=== PATIENT | female | born 1985 | race Native Hawaiian/Other Pacific Islander ===

== ENCOUNTER 2017-06-24 14:58 | Inpatient (IN) | payer MEDICAID, OTHER ==
[2017-06-24 15:06] VITALS: BMI 17.6
[2017-06-24] MEDS ORDERED: Sodium Chloride 0.9% 1,000 ML IV STA (15:19)
[2017-06-24] MEDS ORDERED: Naloxone 0.4 mg/ml Inj (Adult) IVP STA (15:21)
[2017-06-24 15:35] LABS: BASO # 0.01 K/mm3 (0.0-2.0); BASO % 0.2 % (0.0-3.0); EOS # 0.1 (0.0-0.7); EOS % 1.2 % (1.5-5.0); GRAN # 3.13 (1.4-6.5); GRAN % 61.6 % (50.0-68.0); HEMATOCRIT 36.5 % (36.0-48.0); LYMPH # 1.5 (1.2-3.4); LYMPH % 29.1 % (22.0-35.0); MEAN CELL VOLUME 80.9 fl (80.0-105.0); MEAN CORPUSCULAR HEMOGLOBIN 26.8 pg (25.0-35.0); MEAN CORPUSCULAR HGB CONC 33.2 g/dl (31.0-37.0); MEAN PLATELET VOLUME 10.8 fl (7.0-11.0); MONO # 0.4 (0.1-0.6); MONO % 7.9 % (1.0-6.0); RED CELL DISTRIBUTION WIDTH 14.4 % (11.5-14.5); WHITE BLOOD COUNT 5.1 10^3/ul (4.5-11.0)
--- NOTE | 2017-06-24 15:49 | ED PDOC ---
Arrival/HPI - General Chief Complaint: Altered Mental Status Time Seen by Provider: 06/24/17 15:07 Historian: Spouse - History of Present Illness Narrative History of Present Illness (Text): 06/24/17 15:46 32 yo F with no significant past medical or psychiatric history, brought in by her for evaluation of altered mental status. As per patient's , he had purchased the patient [id number] Motrin PM 45 minutes ago, due to her complaint of a headache today. He states 30 minutes prior to arrival he found her in deep sleep and was unable to wake her up. He adds that he found the bottle nearly empty, with only 2 tablets remaining in the entire bottle contains a total of 20 tablets. He states that she does not have a history of depression or prior suicide attempts in the past. Otherwise he states that she only complained of headache today and had no other complaints. PMD none Past Medical History - Provider Review Nursing Documentation Reviewed: Yes - Infectious Disease Hx of Infectious Diseases: None - Psychiatric Hx Substance Use: No (UNKNOWN) - Anesthesia Hx Anesthesia: (UNKNOWN) Family/Social History - Physician Review Nursing Documentation Reviewed: Yes Family/Social History: No Known Family HX Smoking Status: Unknown If Ever Smoked Hx Alcohol Use: No (UNKNOWN) Hx Substance Use: No (UNKNOWN) Allergies/Home Meds Allergies/Adverse Reactions: Allergies Unobtainable Allergy (Verified 06/24/17 15:06) Home Medications: Home Meds Medication Instructions Recorded Confirmed Unobtainable 06/24/17 06/24/17 Review of Systems - Review of Systems Systems not reviewed;Unavailable: Altered Mental Status Physical Exam Vital Signs Reviewed: Yes Vital Signs Temp Pulse Resp BP Pulse Ox 06/24/17 22:27 74 18 120/77 99 06/24/17 18:50 78 17 132/89 99 06/24/17 17:30 98 F 76 19 128/85 99 06/24/17 15:11 100 H 14 136/93 H 100 Blood Pressure: Normal Pulse: Tachycardic Respiratory Rate: Normal Appearance: Positive for: Well-Appearing, Other (Sleeping) Pain Distress: None Finger Stick Blood Glucose: 98 - Systems Exam Head: Present: Atraumatic, Normocephalic. No: Tenderness, Swelling Pupils: Present: PERRL Conjunctiva: Present: Normal Mouth: Present: Moist Mucous Membranes Neck: Present: Normal Range of Motion Respiratory/Chest: Present: Clear to Auscultation, Good Air Exchange. No: Respiratory Distress, Wheezes, Rhonchi Cardiovascular: Present: Normal S1, S2, Tachycardic. No: Murmurs Abdomen: No: Tenderness, Distention Back: Present: Normal Inspection Upper Extremity: Present: Normal Inspection, Neurovascularly Intact, Capillary Refill < 2s. No: Edema, Tenderness, Swelling, Deformity Lower Extremity: Present: Normal Inspection, NORMAL PULSES, Capillary Refill < 2 s. No: Edema, Tenderness, Swelling, Deformity Neurological: Present: Other (unable to test) Skin: Present: Warm, Dry, Normal Color. No: Rashes Medical Decision Making ED Course and Treatment: 06/24/17 15:53 32 yo F with no significant past medical or psychiatric history, brought in by her for possible overdose of [id number] Motrin PM 45 minutes ago. Plan: -- Labs -- IV fluids -- Urinalysis -- EKG -- CXR -- Drug screen / etoh level -- Asa / salicylate level -- Reassess and disposition -- CT head Case d/w Aubrey from poison control, agree with current plan and treatment, recommends supportive care for now, will call back to see the patient's status. 06/24/17 16:00 On reevaluation, patient is now awake, is somewhat alert, is answering a few questions at this time. Breathing is easy and unlabored. VS : P 86 BP 136/93 O2 sat 100%RA. EKG: NSR at 79 bpm bpm, (-) acute ST changes, as read by ADRIANA. Lab results reviewed, UA shows evidence of UTI, urine hCG is negative, otherwise the rest of the labs are within normal limits. Vital signs stable at this time. On reevaluation, patient is sleeping comfortably in bed in no acute distress, breathing is easy unlabored, patient is arousable at this time. Chest x-ray and CT still pending. CXR: NAD, as read by ADRIANA. CT Head : shows no acute findings. On re-evaluation, patient is now more awake and alert, still drowsy and unable to completely answer questions. Breathing is easy and unlabored. She is calm and cooperative at this time. VSS. Case d/w Dr. Thomas, agree with plan for inpatient admission to the hospitalist with psych consult. - Lab Interpretations Microbiology Results: Microbiology Results 06/24/17 15:40 Urine,Clean Catch Urine Culture - Preliminary Gram Negative Jose Lab Results: 06/24/17 15:00 06/24/17 15:00 Lab Results 06/24/17 15:40: Urine Opiates Screen Negative, Urine Methadone Screen Negative, Ur Barbiturates Screen Negative, Ur Phencyclidine Scrn Negative, Ur Amphetamines Screen Negative, U Benzodiazepines Scrn Negative, U Oth Cocaine Metabols Negative, U Cannabinoids Screen Negative 06/24/17 15:40: Urine Color Light yellow, Urine Appearance Clear, Urine pH 6.0, Ur Specific [place] 1.010, Urine Protein Negative, Urine Glucose (UA) Negative, Urine Ketones Negative, Urine Blood Small H, Urine Nitrate Positive H, Urine Bilirubin Negative, Urine Urobilinogen 0.2, Ur Leukocyte Esterase Trace H, Urine RBC 1 - 3, Urine WBC 0 - 2, Ur Epithelial Cells 0 - 2, Urine Bacteria Many 06/24/17 15:00: Beta HCG, Quant < 2.39 06/24/17 15:00: Alcohol, Quantitative < 10 06/24/17 15:00: Salicylates < 1 L, Acetaminophen < 10.0 L 06/24/17 15:00: Sodium 140, Potassium 3.7, Chloride 104, Carbon Dioxide 22, Anion Gap 18, BUN 12, Creatinine 0.6, Est GFR ( Amer) > 60, Est GFR (Non- Af Amer) > 60, Random Glucose 100, Calcium 9.2, Total Bilirubin 0.4, AST 30, ALT 21, Alkaline Phosphatase 80, Total Protein 8.4 H, Albumin 4.5, Globulin 3.9 , Albumin/Globulin Ratio 1.2 06/24/17 15:00: WBC 5.1, RBC 4.51, Hgb 12.1, Hct 36.5, MCV 80.9, MCH 26.8, MCHC 33.2, RDW 14.4, Plt Count 259, MPV 10.8, Gran % 61.6, Lymph % (Auto) 29.1, [place] % (Auto) 7.9 H, Eos % (Auto) 1.2 L, Baso % (Auto) 0.2, Gran # 3.13, Lymph # 1.5 , [place] # 0.4, Eos # 0.1, Baso # 0.01 I have reviewed the lab results: Yes - RAD Interpretation Narrative RAD Interpretations (Text): 06/24/17 19:42 CT head : FINDINGS: LIMITATIONS: Mild to moderate streak/motion artifact. BRAIN: No significant acute abnormality identified, allowing for motion artifact. No acute hemorrhage seen within the brain. No acute extra-axial fluid collections visualized. No evidence of significant mass effect within the brain. Normal oneil-white matter differentiation. VENTRICLES: No evidence of significant hydrocephalus. BONES/JOINTS: No acute fractures or other acute bony abnormality noted. SOFT TISSUES: No acute abnormality of the visualized soft tissues is seen. SINUSES: Small mucus retention cyst in a right ethmoid sinus. Remaining visualized paranasal sinuses appear clear. MASTOID AIR CELLS: Mastoid air cells appear clear. IMPRESSION: - No acute findings seen within the brain, allowing for motion artifact. - See above for remaining findings. Dictated and Authenticated by: Rowena Carter MD 06/24/2017 7:39 PM Eastern Time ([place] & [place]) Radiology Orders: 06/24/17 15:19 CHEST PORTABLE [RAD] Stat 06/24/17 15:21 HEAD W/O CONTRAST [CT] Stat - Medication Orders Current Medication Orders: Heparin Sodium (Porcine) (Heparin) 5,000 units SC Q8 [facility] PRN Reason: Protocol Last Admin: 06/25/17 05:24 Dose: 5,000 units Subcutaneous Administrations Document 06/25/17 05:24 CO (Rec: 06/25/17 05:24 CO [facility] [id number]) Charges for Administration # of Subcutaneous Administrations 1 Sodium Chloride (Sodium Chloride 0.9%) 1,000 mls @ 150 mls/hr IV .Q6H40M [facility] Last Admin: 06/25/17 06:54 Dose: 150 mls/hr eMAR Start Stop Document 06/25/17 06:54 CO (Rec: 06/25/17 06:54 CO [facility] [id number]) Intravenous Solution Start Date 06/25/17 Start Time 06:54 Nitrofurantoin Macrocrystals (Macrobid) 100 mg PO Q12 [facility] Last Admin: 06/25/17 09:53 Dose: Not Given Non-Admin Reason: NPO Pantoprazole Sodium (Protonix Ec Tab) 40 mg PO 0600 [facility] Discontinued Medications Heparin Sodium (Porcine) (Heparin) 5,000 units IVP Q8 [facility] PRN Reason: Protocol Last Admin: 06/24/17 23:55 Dose: Sodium Chloride (Sodium Chloride 0.9%) 1,000 mls @ 1,000 mls/hr IV .Q1H STA Stop: 06/24/17 16:18 Last Admin: 06/24/17 15:43 Dose: 1,000 mls/hr eMAR Start Stop Document 06/24/17 15:43 IT (Rec: 06/24/17 15:43 IT [id number]) Intravenous Solution Start Date 06/24/17 Start Time 15:43 End Date 06/24/17 End time 16:43 Total Infusion Time 60 Naloxone HCl (Narcan) 0.4 mg IVP STAT STA Stop: 06/24/17 15:22 Last Admin: 06/24/17 15:44 Dose: 0.4 mg IVP Administration Document 06/24/17 15:44 IT (Rec: 06/24/17 15:44 IT [id number]) Charges for Administration # of IVP Administrations 1 Nitrofurantoin Macrocrystals (Macrobid) 100 mg PO ONCE ONE Stop: 06/24/17 19:44 Last Admin: 06/24/17 23:17 Dose: 100 mg Pantoprazole Sodium (Protonix Inj) 40 mg IVP DAILY [facility] Last Admin: 06/25/17 10:00 Dose: 40 mg IVP Administration Document 06/25/17 10:00 GM (Rec: 06/25/17 10:00 GM [id number]) Charges for Administration # of IVP Administrations 1 - PA / [employer] / Resident Statement MD/DO has reviewed & agrees with the documentation as recorded. Disposition/Present on Arrival - Present on Arrival Any Indicators Present on Arrival: No History of DVT/PE: No History of Uncontrolled Diabetes: No Urinary Catheter: No History of Decub. Ulcer: No History Surgical Site Infection Following: None - Disposition Have Diagnosis and Disposition been Completed?: Yes Diagnosis: Motrin overdose, Diphenhydramine overdose Disposition: HOSPITALIZED Disposition Time: 20:09 Patient Plan: Admission Patient Problems: Current Active Problems Problem Status Onset Diphenhydramine overdose Acute Motrin overdose Acute Condition: STABLE
[2017-06-24 15:57] LABS: ALB/GLOB RATIO 1.2 (1.1-1.8); ALKALINE PHOSPHATASE 80 U/L (38-126); ALT/SGPT 21 U/L (7-56); AST/SGOT 30 U/L (14-36); BILIRUBIN,TOTAL 0.4 mg/dL (0.2-1.3); BLOOD UREA NITROGEN 12 mg/dL (7-21); CALCIUM 9.2 mg/dL (8.4-10.5); CARBON DIOXIDE 22 mmol/L (21-33); CHLORIDE 104 mmol/L (98-107); GFR AFRICAN-AMERICAN > 60; GLUCOSE,RANDOM 100 mg/dL (70-110); POTASSIUM 3.7 mmol/L (3.6-5.0); SODIUM 140 mmol/L (132-148); TOTAL PROTEIN 8.4 g/dL (5.8-8.3)
[2017-06-24 16:09] LABS: URINE BILIRUBIN NEGATIVE (NEGATIVE); URINE BLOOD SMALL (NEGATIVE); URINE GLUCOSE (UA) NEGATIVE (NEGATIVE); URINE KETONE NEGATIVE (NEGATIVE); URINE LEUKOCYTE ESTERASE TRACE Leu/uL (NEGATIVE); URINE PROTEIN NEGATIVE mg/dL (<30 mg/dL); URINE UROBILINOGEN 0.2 E.U./dL (<1 E.U./dL)
[2017-06-24 16:12] LABS: URINE APPEARANCE CLEAR (CLEAR); URINE COLOR LIGHT YELLOW (YELLOW)
[2017-06-24 16:40] LABS: URINE BACTERIA MANY (NEG); URINE EPITHELIAL CELLS 0 - 2 /hpf (0-5); URINE WBC 0 - 2 /hpf (0-6)
--- NOTE | 2017-06-24 19:39 | CT ---
EXAM: CT Head Without Intravenous Contrast EXAM DATE/TIME: 06/24/2017 3:21 PM CLINICAL HISTORY: 32 years old, female; Signs and symptoms; Altered mental status/memory loss; Patient HX: Overdose TECHNIQUE: Axial computed tomography images of the head/brain without intravenous contrast. All CT scans at this facility use one or more dose reduction techniques, viz.: automated exposure control; ma/kV adjustment per patient size (including targeted exams where dose is matched to indication; i.e. head); or iterative reconstruction technique. COMPARISON: No relevant prior studies available. FINDINGS: LIMITATIONS: Mild to moderate streak/motion artifact. BRAIN: No significant acute abnormality identified, allowing for motion artifact. No acute hemorrhage seen within the brain. No acute extra-axial fluid collections visualized. No evidence of significant mass effect within the brain. Normal oneil-white matter differentiation. VENTRICLES: No evidence of significant hydrocephalus. BONES/JOINTS: No acute fractures or other acute bony abnormality noted. SOFT TISSUES: No acute abnormality of the visualized soft tissues is seen. SINUSES: Small mucus retention cyst in a right ethmoid sinus. Remaining visualized paranasal sinuses appear clear. MASTOID AIR CELLS: Mastoid air cells appear clear. IMPRESSION: - No acute findings seen within the brain, allowing for motion artifact. - See above for remaining findings.
--- NOTE | 2017-06-24 22:54 | CP.PCM.HP ---
<ToniaIssac - Last Filed: 06/25/17 00:57> History of Present Illness - History of Present Illness History of Present Illness: 32 F w/ no PMHx presents with AMS. Patient's is at bedside helping with translation and history. Patient's states that while they were on a family drive from [place] back to [place], patient's took 18 Motrin PM because she was complaining of a headache. Patient's states that she has never tried to commit suicide before and that she has no history of psychiatric illness. However, patient herself does state that she is stressed out right now from work. History from patient is limited 2/2 mental status. Patient denies f/ch/n/v/d/cp/sob. She does feel tired and 'a little out of it.' PSHx: Patient denies PMHx: Patient denies All: unobtainable SocHx: Patient's living situation unclear. FamHx: Non-contributory Medications: Patient denies PMD: None Present on Admission - Present on Admission Any Indicators Present on Admission: No History of DVT/PE: No History of Uncontrolled Diabetes: No Urinary Catheter: No Decubitus Ulcer Present: No Review of Systems - Hematologic/Lymphatic Additional comments: ROS: Constitutional: pt denies fever, chills, generalized weakness ENT: pt denies dysphagia, otalgia, hearing deficit, rhinorrhea Eyes: pt denies sudden loss of vision, diplopia, blurred vision MSK: pt denies muscle stiffness, joint pain, extremity cramping Cardio: pt denies sob, heart murmur, cp Pulm: pt denies cough, hemoptysis, wheeze GI: pt denies loss of appetite, abdominal pain, constipation, melena, n/v/d : pt denies burning on urination, urinary frequency, hematuria, urinary urgency Neuro: pt denies paresis, paresthesia, dizziness, louis, numbness, tingling Derm: pt denies skin changes, lesions, nail changes Endo: pt denies intolerance to heat/cold, diaphoresis, night sweats, polydipsia Psych: pt denies anxiety, depression, mood changes Past Patient History - Infectious Disease Hx of Infectious Diseases: None - Past Social History Smoking Status: Unknown If Ever Smoked - PSYCHIATRIC Hx Substance Use: No (UNKNOWN) - ANESTHESIA Hx Anesthesia: (UNKNOWN) Meds Allergies/Adverse Reactions: Allergies Allergy/AdvReac Type Severity Reaction Status Date / Time Unobtainable Allergy Verified 06/24/17 15:06 Physical Exam - Additional Findings Additional findings: Phys Exam: VS as below Constitutional: patient was a&o x 4 when I saw her, nad Head and Neck: neck supple, no jvd, trachea midline, carotid midline, no cervical/head mass Eyes: bipin, nonicteric sclera, eom intact ENT: auditory acuity grossly intact, throat not congested, no nasal deformity Cardio: rrr, no m/r/g, no carotid bruit, nml s1, s2 Pulm: no accessory muscle use, equal nml breath sounds bilaterally, ctab Abd: s/nt/nd, nbs x 4 q, no palpable masses Derm: no rashes, no ulcers, no lesions Extr: no edema, no cyanosis, no calf tenderness, no lesions, no varicosities Neuro: cn II-XII grossly intact, ue and le 5/5 muscle strength bilaterally, no los ue, le bilaterally and core Results - Vital Signs Recent Vital Signs: Last Vital Signs Temp 98 F 06/24/17 17:30 Pulse 74 06/24/17 22:27 Resp 18 06/24/17 22:27 BP 120/77 06/24/17 22:27 Pulse Ox 99 06/24/17 22:27 - Labs Result Diagrams: 06/24/17 15:00 06/24/17 15:00 Assessment & Plan - Assessment and Plan (Free Text) Assessment: A/P Motrin OD - NPO - Fall precautions - Vitals q4 - EKG q4 - HOB at 30 degrees - Was given narcan in ED Suicidal Ideation - 1:1 - Psych Consult: Dr. Sage UTI - Macrobid GI/DVT PPHXS - Protonix/Heparin <Martha DARNELL,Bob - Last Filed: 06/25/17 08:48> Results - Vital Signs Recent Vital Signs: Last Vital Signs Temp 98.4 F 06/25/17 06:00 Pulse 72 06/25/17 06:00 Resp 20 06/25/17 06:00 BP 108/74 06/25/17 06:00 Pulse Ox 99 06/25/17 06:00 - Labs Result Diagrams: 06/24/17 15:00 06/24/17 15:00 Attending/Attestation - Attestation I have personally seen and examined this patient.: Yes I have fully participated in the care of the patient.: Yes I have reviewed all pertinent clinical information: Yes Notes (Text): -I agree with the above H&P completed by the resident physician with the following additions and/or changes: The patient is a 32 year old woman with no past medical history admitted after she intentionally too 18 200mg Motrin PM tablets for a headache. Upon further questioning, she admits to suicidal ideations and denies any previous history of the same or any homicidal ideations. Poison control was notified by the ED and they recommended to monitor for development of anticholinergic toxicity ( from the Benadryl component of Motrin PM). Serial EKG's have been ordered and do not show any evidence of QTc prolongation thus far. Ct-head was negative. 1: 1 sitter and psych consult has been ordered. Aggressive IVF's have also been started as well as NPO. Because her vitals and labs were all within normal range and she was protecting her airway, she will be admitted to the telemetry garza. Salicylate and Acetaminophen levels are negative.
[2017-06-24] MEDS: Sodium Chloride 0.9% 1,000 ML IV SCH (23:29)
[2017-06-25] MEDS: Sodium Chloride 0.9% 1,000 ML IV SCH ×3 (06:54→20:25)
--- NOTE | 2017-06-25 09:31 | RAD ---
HISTORY: overdose COMPARISON: No prior. FINDINGS: LUNGS: Vague opacity right lung base may represent atelectasis however developing infiltrate could be excluded with followup radiographs. PLEURA: No significant pleural effusion identified, no pneumothorax apparent. CARDIOVASCULAR: Normal. OSSEOUS STRUCTURES: No significant abnormalities. VISUALIZED UPPER ABDOMEN: Normal. OTHER FINDINGS: None. IMPRESSION: Vague opacity right lung base may represent atelectasis however developing infiltrate could be excluded with followup radiographs.
--- NOTE | 2017-06-25 11:45 | CARD ---
APPROVED REPORT EKG Measurement Heart [id number] [place] 160P68 [id number] <Conclusion> Normal sinus rhythm LVH by voltage
--- NOTE | 2017-06-25 11:49 | CARD ---
APPROVED REPORT EKG Measurement Heart [id number] [place] 166P71 [id number] <Conclusion> Normal sinus rhythm Normal ECG
--- NOTE | 2017-06-25 12:33 | CARD ---
APPROVED REPORT EKG Measurement Heart [id number] [place] 156P69 [id number] <Conclusion> Normal sinus rhythm Mildly prolonged QTc LVH by voltage
--- NOTE | 2017-06-25 14:31 | CP.PCM.PN ---
<Tyler Mejia - Last Filed: 06/25/17 14:21> Subjective - Date & Time of Evaluation Date of Evaluation: 06/25/17 Time of Evaluation: 08:00 - Subjective Subjective: Medicine Progress note. Dr. De Pt seen and examined at bedside. No acute events overnight. Patient somnolent but easily arousable. Denies any complaints. No N/V/D. No F/C. No Abd pain. No complaints. States that she has increased stressors at home, but will not give any more information. Objective - Vital Signs/Intake and Output Vital Signs (last 24 hours): Temp Pulse Resp BP Pulse Ox 98.6 F 83 18 99/54 L 99 06/25/17 12:00 06/25/17 12:00 06/25/17 12:00 06/25/17 12:00 06/25/17 06:00 Intake and Output: 06/25/17 06/25/17 06:59 18:59 Intake Total 1050 Balance 1050 - Medications Medications: Current Medications Heparin Sodium (Porcine) (Heparin) 5,000 units SC Q8 [facility] PRN Reason: Protocol Last Admin: 06/25/17 05:24 Dose: 5,000 units Sodium Chloride (Sodium Chloride 0.9%) 1,000 mls @ 150 mls/hr IV .Q6H40M [facility] Last Admin: 06/25/17 06:54 Dose: 150 mls/hr Nitrofurantoin Macrocrystals (Macrobid) 100 mg PO Q12 [facility] Last Admin: 06/25/17 09:53 Dose: Not Given Pantoprazole Sodium (Protonix Inj) 40 mg IVP DAILY [facility] Last Admin: 06/25/17 10:00 Dose: 40 mg - Constitutional Appears: Well, No Acute Distress - Head Exam Head Exam: ATRAUMATIC, NORMAL INSPECTION, NORMOCEPHALIC - Eye Exam Eye Exam: EOMI, Normal appearance - ENT Exam ENT Exam: Mucous Membranes Dry - Neck Exam Neck Exam: Full ROM - Respiratory Exam Respiratory Exam: Clear to Ausculation Bilateral, NORMAL BREATHING PATTERN. absent: Decreased Breath Sounds, Wheezes, Respiratory Distress - Cardiovascular Exam Cardiovascular Exam: RRR, +S1, +S2. absent: JVD - GI/Abdominal Exam GI & Abdominal Exam: Soft. absent: Firm, Guarding, Rigid, Tenderness, Rebound - Extremities Exam Extremities Exam: Normal Inspection. absent: Calf Tenderness - Back Exam Back Exam: NORMAL INSPECTION - Neurological Exam Neurological Exam: Alert, Awake, Oriented x3 - Psychiatric Exam Psychiatric exam: Flat Affect - Skin Skin Exam: Dry, Intact, Normal Color, Warm Assessment and Plan - Assessment and Plan (Free Text) Assessment: 32yo F with no significant PMHx here for evaluation after suicidal attempt. 1. Suicidal ideation Placed on 1:1 Psych Consult, appreciate recs 2. Motrin PM OD in the setting of 18 Motrin PM taken Fall precautions EKG, monitor for prolonged qtc QTc high of 477. Now trending down. D/C EKG q4h. Will monitor clinically. Vitals q4 Aspiration precautions 3. Vague Opacity in Right Lung Base CXR - vague opacity in RLL Obtain Procalcitonin 4. UTI UA positive for Nitrates and LE Macrobid 5. PPx Protonix Heparin Discussed case with Dr. Santino Mejia PGY1 <Mary Ann De - Last Filed: 06/25/17 15:04> Objective - Vital Signs/Intake and Output Vital Signs (last 24 hours): Temp Pulse Resp BP Pulse Ox 98.6 F 83 18 99/54 L 99 06/25/17 12:00 06/25/17 12:00 06/25/17 12:00 06/25/17 12:00 06/25/17 06:00 Intake and Output: 06/25/17 06/25/17 06:59 18:59 Intake Total 1050 Balance 1050 - Medications Medications: Current Medications Heparin Sodium (Porcine) (Heparin) 5,000 units SC Q8 [facility] PRN Reason: Protocol Last Admin: 06/25/17 05:24 Dose: 5,000 units Sodium Chloride (Sodium Chloride 0.9%) 1,000 mls @ 150 mls/hr IV .Q6H40M [facility] Last Admin: 06/25/17 06:54 Dose: 150 mls/hr Nitrofurantoin Macrocrystals (Macrobid) 100 mg PO Q12 [facility] Last Admin: 06/25/17 09:53 Dose: Not Given Pantoprazole Sodium (Protonix Ec Tab) 40 mg PO 0600 [facility] Attending/Attestation - Attestation I have personally seen and examined this patient.: Yes I have fully participated in the care of the patient.: Yes I have reviewed all pertinent clinical information, including history, physical exam and plan: Yes Notes (Text): 06/25/17 14:54 32 year old female who is currently admitted after overdosing on Motrin PM. Continue with 1:1 observation while awaiting psychiatry evaluation. Continue with serial EKG monitoring to monitor for QTc prolongation. CXR showed vague opacity if RLL, atelectasis vs developing infiltrate. However she is afebrile without cough or leukocytosis. Procalcitonin level is ordered. Will monitor clinically. She was started on macrobid for possible UTI. UCx is pending. Mary Ann De MD Hospitalist.
--- NOTE | 2017-06-25 14:49 | CARD ---
APPROVED REPORT EKG Measurement Heart [id number] [place] 156P64 [id number] <Conclusion> Normal sinus rhythm Mildly prolonged QTc
--- NOTE | 2017-06-25 15:51 | CARD ---
APPROVED REPORT EKG Measurement Heart [id number] [place] 118P52 [id number] <Conclusion> Normal sinus rhythm Nonspecific T wave abnormality Abnormal ECG
--- NOTE | 2017-06-25 18:04 | CON ---
DATE: HISTORY OF PRESENT ILLNESS: The patient is a 32-year-old patient female with not known previous psychiatric history. The patient was brought in status post overdose on 18 Motrin PM. Psych consult was called for evaluation of possible intentional overdose and depressive symptoms. The patient was seen and examined today on the second floor. The patient observed sleeping. There is 1:1. The patient most likely for suicide precaution and for safety. This commercial underwriter attempted to speak to the patient, but the patient is very drowsy, falling asleep during the interview. This commercial underwriter needed to wake the patient up few times. The patient had difficulty to stay focus and answer further questions. The patient was not able to participate in interview, but based on the presentation the patient said that she wanted to end up her life, but not anymore. The patient was not able to provide history of what stress she underwent. She was not able to provide history if she was feeling depressed or does she have any psychotic symptoms. The patient is very drowsy. Past psychiatric history checked, there is no previous record at [facility]. PHYSICAL EXAMINATION: VITAL SIGNS: Seems to be stable. Temperature 98.4, pulse 72, blood pressure 108/74, respirations 20, O2 saturation is 99%. Medications reviewed. The patient is on heparin, Macrobid, Protonix and sodium chloride. Labs reviewed. Chemistry reviewed. Urinalysis showed leukocyte esterase positive, nitrites positive . Toxicology reviewed there is no drugs in the system. MENTAL STATUS EXAMINATION: As this commercial underwriter described above, the patient was very drowsy falling asleep. The patient presented to have acceptable personal hygiene, very thin built woman. No eye contact. The patient was falling asleep. The patient was very low almost whispering underproductive. The patient was not able to describe her mood. Difficult to stay focus and concentration is very poor. The patient made it clear that she wanted to end up her life prior to come to the hospital, but not anymore, was not able to provide history . Insight and judgement are limited. Impulses are unpredictable. IMPRESSION: Rule out major depressive disorder. Rule out status post intentional overdose of medications. PLAN: Continue current management, continue current 1:1 as of now. This commercial underwriter need to reevaluate the patient because the patient is not able to participate in interview or falling asleep during the interview. Family involvement. Should you have any questions he may call back. Meanwhile, this commercial underwriter will come back tomorrow and advise accordingly. Thank you very much for letting me to participate in the care of your patient. Shanell Ordaz MD
[2017-06-26] MEDS: Sodium Chloride 0.9% 1,000 ML IV SCH ×5 (01:07→17:56)
[2017-06-26] MEDS: Pantoprazole 40 mg EC Tab PO SCH (05:14)
[2017-06-26 05:53] LABS: BASO # 0.01 K/mm3 (0.0-2.0); BASO % 0.2 % (0.0-3.0); EOS # 0.1 (0.0-0.7); EOS % 2.8 % (1.5-5.0); GRAN # 2.02 (1.4-6.5); GRAN % 44.2 % (50.0-68.0); HEMATOCRIT 31.9 % (36.0-48.0); LYMPH % 43.4 % (22.0-35.0); MEAN CORPUSCULAR HGB CONC 31.7 g/dl (31.0-37.0); MEAN PLATELET VOLUME 10.1 fl (7.0-11.0); MONO # 0.4 (0.1-0.6); MONO % 9.4 % (1.0-6.0); RED CELL DISTRIBUTION WIDTH 14.8 % (11.5-14.5); WHITE BLOOD COUNT 4.6 10^3/ul (4.5-11.0)
[2017-06-26 06:20] LABS: ALB/GLOB RATIO 0.9 (1.1-1.8); ALKALINE PHOSPHATASE 61 U/L (38-126); ALT/SGPT 28 U/L (7-56); AST/SGOT 21 U/L (14-36); BILIRUBIN,TOTAL 0.3 mg/dL (0.2-1.3); BLOOD UREA NITROGEN 9 mg/dL (7-21); CALCIUM 8.3 mg/dL (8.4-10.5); CARBON DIOXIDE 23 mmol/L (21-33); CHLORIDE 110 mmol/L (95-110); GFR AFRICAN-AMERICAN > 60; GLUCOSE,RANDOM 95 mg/dL (70-110); MAGNESIUM 1.9 mg/dL (1.7-2.2); POTASSIUM 4.3 mmol/L (3.6-5.0); SODIUM 139 mmol/L (132-148); TOTAL PROTEIN 5.9 g/dL (5.8-8.3)
--- NOTE | 2017-06-26 09:43 | CARD ---
APPROVED REPORT EKG Measurement Heart [id number] <Conclusion> Normal sinus rhythm Normal ECG The QTC is normal now
--- NOTE | 2017-06-26 14:24 | PN ---
DATE: FOLLOWUP NOTE SUBJECTIVE: Shortly, the patient is a 32-year-old female. The patient was admitted on the medical site, status post intentional overdose on pain medication. Psych consult was called for evaluation of possible depressive symptoms and possible suicidal attempt. This typewriter assembler tried to speak to the patient yesterday, but the patient was not able to tolerate interview because of drowsiness and somnolence. This typewriter assembler was following patient up today at the morning time. The patient presented to be depressed, flat affect, talks in monotonous and low volume. Initially, the patient does not want to talk to this typewriter assembler because her explanation is "I don't want to talk to many doctors." Eventually, the patient was willing to provide history. The patient said that she does not feel happy for many years. The patient said that she became very depressed after she got with her child who is 8-year-old. The patient said that she was thinking about overdose on pills for years. The patient said that she is not happy in her marriage. She appreciates her who wants to save the family, but at the present moment, the patient wants to live by herself and does not want to take care of her daughter. The patient said that they were driving to [place] because the patient wanted to live independently. On the way going, the patient said that she bought pain killers, but she does know what is the name and she started to take them in the car. At present moment, the patient said that she does not need to have any help. She wants to go back home. There is no remorse over suicidal attempt. The patient still has passive wish to be . The patient does not want to be followed up with outpatient psychiatrist and does not want to have any help from this typewriter assembler. MEDICATIONS: Reviewed. The patient is on heparin, Macrobid, Protonix and sodium chloride. LABORATORY DATA: Labs reviewed. Hemoglobin and hematocrit 10.1 and 31.9 respectively. Chemistry reviewed. Urinalysis showed leukocyte esterase positive. Toxicology negative for any substances. Microbiology came back positive for E. coli in urine. Reports reviewed. Initially, the patient had QTc prolongation, but right now, it is trending down. On x-ray, vague opacity in the right lower lobe. Urinary tract infection was diagnosed. Electrocardiogram was reviewed today, which showed QTc of 413, which is an improvement. MENTAL STATUS EXAMINATION: The patient presented today drowsy, easily arousable, intermittent eye contact. The patient seems to be careless about her presentation. Tearful during the interview. Mood described as very depressed and hopeless. Affect was flat and tearful. Mood, congruent. Thought process seems to be coherent and goal directed, but circumstantial and overinclusive. Thought content, the patient denies visual, auditory or tactile hallucinations. Denied paranoid ideation. The patient denied history of hearing voices. Denied history of seeing things. The patient was making vague statement that she still wants to , but at the same time, she does not want to kill herself at the moment of the interview. The patient has no insight into her mental illness. Impulses are not predictable. IMPRESSION: Rule out major depressive disorder; rule out adjustment disorder; status post suicidal attempt. PLAN: This typewriter assembler offered the patient admission to the psychiatric inpatient unit and the patient declined that offer plan. One-to-one need to be continued. The patient needs to be screened by [facility] because the patient has no remorse about her suicidal attempt. The patient made it clear that she wanted to end her life. The patient has no support in the community. The patient was making decisions to leave her family and start to live independently and the patient is at high risk of suicidal attempt in the future. We will initiate [facility] screening process. Should you have any questions, give me a call back. Case was discussed with Dr. De. Shanell Ordaz MD
--- NOTE | 2017-06-26 16:36 | CP.PCM.PN ---
<Tyler Mejia - Last Filed: 06/26/17 16:26> Subjective - Date & Time of Evaluation Date of Evaluation: 06/26/17 Time of Evaluation: 07:35 - Subjective Subjective: Medicine Progress note. Dr. De Pt seen and examined at bedside. No acute events overnight. Patient more awake and alert. Responds to questions, however, with flat affect. No new complaints offered. Objective - Vital Signs/Intake and Output Vital Signs (last 24 hours): Temp Pulse Resp BP Pulse Ox 98.1 F 67 20 91/50 L 99 06/26/17 12:00 06/26/17 12:00 06/26/17 12:00 06/26/17 12:00 06/26/17 06:00 Intake and Output: 06/26/17 06/26/17 06:59 18:59 Intake Total 1800 Balance 1800 - Medications Medications: Current Medications Heparin Sodium (Porcine) (Heparin) 5,000 units SC Q8 [facility] PRN Reason: Protocol Last Admin: 06/26/17 14:15 Dose: 5,000 units Sodium Chloride (Sodium Chloride 0.9%) 1,000 mls @ 150 mls/hr IV .Q6H40M [facility] Last Admin: 06/26/17 14:09 Dose: Not Given Nitrofurantoin Macrocrystals (Macrobid) 100 mg PO Q12 [facility] Last Admin: 06/26/17 09:02 Dose: 100 mg Pantoprazole Sodium (Protonix Ec Tab) 40 mg PO 0600 [facility] Last Admin: 06/26/17 05:14 Dose: 40 mg - Labs Labs: 06/26/17 05:20 06/26/17 05:20 - Constitutional Appears: Well, No Acute Distress - Head Exam Head Exam: ATRAUMATIC, NORMAL INSPECTION, NORMOCEPHALIC - Eye Exam Eye Exam: EOMI, Normal appearance - ENT Exam ENT Exam: Mucous Membranes Moist - Neck Exam Neck Exam: Full ROM - Respiratory Exam Respiratory Exam: Clear to Ausculation Bilateral, NORMAL BREATHING PATTERN. absent: Decreased Breath Sounds, Rales, Rhonchi, Wheezes, Respiratory Distress - Cardiovascular Exam Cardiovascular Exam: RRR. absent: JVD, +S1, +S2 - GI/Abdominal Exam GI & Abdominal Exam: Soft, Normal Bowel Sounds. absent: Guarding, Rigid, Tenderness, Rebound - Extremities Exam Extremities Exam: Normal Inspection. absent: Calf Tenderness - Neurological Exam Neurological Exam: Alert, Awake, Oriented x3 - Psychiatric Exam Psychiatric exam: Depressed, Flat Affect - Skin Skin Exam: Dry, Intact, Normal Color, Warm Assessment and Plan - Assessment and Plan (Free Text) Assessment: 32yo F with no significant PMHx here for evaluation after suicidal attempt. 1. Suicidal ideation Placed on 1:1 Psych Consult, appreciate recs Awaiting [facility] psych eval 2. Motrin PM OD in the setting of 18 Motrin PM taken Fall precautions EKG, monitor for prolonged qtc EKG from this AM, normal QTc Vitals q4 Aspiration precautions 3. Vague Opacity in Right Lung Base CXR - vague opacity in RLL No cough, afebrile, no leukocytosis Procalcitonin negative 4. UTI UA positive for Nitrates and LE Macrobid Repeat CBC, UA/UCx ordered 5. PPx Protonix Heparin Dispo: Awaiting [facility] Psych Eval. Patient is medically cleared for discharge to psych. [facility] requesting repeat CBC, repeat UA, repeat UCx Discussed case with Dr. Snatino Mejia PGY1 <Mary Ann De - Last Filed: 06/26/17 18:29> Objective - Vital Signs/Intake and Output Vital Signs (last 24 hours): Temp Pulse Resp BP Pulse Ox 98.1 F 67 20 91/50 L 99 06/26/17 12:00 06/26/17 12:00 06/26/17 12:00 06/26/17 12:00 06/26/17 06:00 Intake and Output: 06/26/17 06/26/17 06:59 18:59 Intake Total 1800 Balance 1800 - Medications Medications: Current Medications Heparin Sodium (Porcine) (Heparin) 5,000 units SC Q8 [facility] PRN Reason: Protocol Last Admin: 06/26/17 14:15 Dose: 5,000 units Sodium Chloride (Sodium Chloride 0.9%) 1,000 mls @ 150 mls/hr IV .Q6H40M [facility] Last Admin: 06/26/17 17:56 Dose: 150 mls/hr Nitrofurantoin Macrocrystals (Macrobid) 100 mg PO Q12 [facility] Last Admin: 06/26/17 09:02 Dose: 100 mg Pantoprazole Sodium (Protonix Ec Tab) 40 mg PO 0600 [facility] Last Admin: 06/26/17 05:14 Dose: 40 mg - Labs Labs: 06/26/17 17:20 06/26/17 05:20 Attending/Attestation - Attestation I have personally seen and examined this patient.: Yes I have fully participated in the care of the patient.: Yes I have reviewed all pertinent clinical information, including history, physical exam and plan: Yes Notes (Text): 06/26/17 18:23 32 year old female who is currently admitted after overdosing on Motrin PM. She is on 1:1 observation. Psychiatry evaluation was appreciated who offered inpatient psychiatric treatment for depression and suicide attempt. However patient has refused and [facility] screeners were called. Initially she had mild QTc prolongation which has now normalized. CXR showed vague opacity if RLL, atelectasis vs developing infiltrate. However she is afebrile without cough or leukocytosis. Procalcitonin level was negative. She was started on macrobid for E coli UTI. Patient is medically cleared and will be screened by [facility] for assessment for involuntary commitment. They have requested repeat CBC which does not show leukocytosis and UA which is negative. Mary Ann De MD Hospitalist.
[2017-06-26 17:34] LABS: BASO # 0.01 K/mm3 (0.0-2.0); BASO % 0.2 % (0.0-3.0); EOS # 0.1 (0.0-0.7); GRAN # 2.56 (1.4-6.5); GRAN % 50.2 % (50.0-68.0); HEMATOCRIT 34.2 % (36.0-48.0); LYMPH % 39.6 % (22.0-35.0); MEAN CELL VOLUME 81.4 fl (80.0-105.0); MEAN CORPUSCULAR HEMOGLOBIN 26.2 pg (25.0-35.0); MEAN CORPUSCULAR HGB CONC 32.2 g/dl (31.0-37.0); MEAN PLATELET VOLUME 9.9 fl (7.0-11.0); MONO # 0.4 (0.1-0.6); PH,URINE 6.5 (4.7-8.0); RED CELL DISTRIBUTION WIDTH 14.7 % (11.5-14.5); URINE BILIRUBIN NEGATIVE (NEGATIVE); URINE BLOOD NEGATIVE (NEGATIVE); URINE GLUCOSE (UA) NEGATIVE (NEGATIVE); URINE KETONE NEGATIVE (NEGATIVE); URINE LEUKOCYTE ESTERASE NEGATIVE Leu/uL (NEGATIVE); URINE PROTEIN NEGATIVE mg/dL (<30 mg/dL); URINE UROBILINOGEN 0.2 E.U./dL (<1 E.U./dL); WHITE BLOOD COUNT 5.1 10^3/ul (4.5-11.0)
[2017-06-26 17:35] LABS: URINE APPEARANCE CLEAR (CLEAR); URINE COLOR YELLOW (YELLOW)
[2017-06-27 06:55] LABS: BASO # 0.01 K/mm3 (0.0-2.0); BASO % 0.2 % (0.0-3.0); EOS # 0.1 (0.0-0.7); EOS % 2.6 % (1.5-5.0); GRAN # 2.02 (1.4-6.5); GRAN % 43.7 % (50.0-68.0); HEMATOCRIT 31.3 % (36.0-48.0); LYMPH % 43.8 % (22.0-35.0); MEAN CELL VOLUME 80.3 fl (80.0-105.0); MEAN CORPUSCULAR HEMOGLOBIN 25.6 pg (25.0-35.0); MEAN CORPUSCULAR HGB CONC 31.9 g/dl (31.0-37.0); MEAN PLATELET VOLUME 10.2 fl (7.0-11.0); MONO # 0.5 (0.1-0.6); MONO % 9.7 % (1.0-6.0); RED CELL DISTRIBUTION WIDTH 14.7 % (11.5-14.5); WHITE BLOOD COUNT 4.6 10^3/ul (4.5-11.0)
[2017-06-27] MEDS: Pantoprazole 40 mg EC Tab PO SCH (06:59)
[2017-06-27 07:09] LABS: ALB/GLOB RATIO 1.2 (1.1-1.8); ALKALINE PHOSPHATASE 52 U/L (38-126); ALT/SGPT 21 U/L (7-56); AST/SGOT 30 U/L (14-36); BILIRUBIN,TOTAL 0.3 mg/dL (0.2-1.3); BLOOD UREA NITROGEN 5 mg/dL (7-21); CALCIUM 8.4 mg/dL (8.4-10.5); CARBON DIOXIDE 29 mmol/L (21-33); CHLORIDE 107 mmol/L (98-107); GFR AFRICAN-AMERICAN > 60; GLUCOSE,RANDOM 82 mg/dL (70-110); MAGNESIUM 1.8 mg/dL (1.7-2.2); PHOSPHOROUS 3.6 mg/dL (2.5-4.5); POTASSIUM 3.8 mmol/L (3.6-5.0); SODIUM 141 mmol/L (132-148); TOTAL PROTEIN 6.2 g/dL (5.8-8.3)
[2017-06-27 08:10] VITALS: BP 100/68; PULSE 67; RESP 20; TEMP 97.8; O2SAT 100
--- NOTE | 2017-06-27 21:18 | CP.PCM.DIS ---
<Zackary Montgomery - Last Filed: 06/27/17 21:29> Provider - Provider Date of Admission: 06/24/17 20:09 Attending physician: Mary Ann De MD Time Spent in preparation of Discharge (in minutes): 45 Diagnosis - Discharge Diagnosis (1) Suicidal behavior Status: Acute Priority: Medium (2) Motrin overdose Status: Resolved Priority: Low Hospital Course - Lab Results Lab Results: Most Recent Lab Values WBC 4.6 10^3/ul (4.5-11.0) 06/27/17 06:39 RBC 3.90 10^6/uL (3.5-6.1) 06/27/17 06:39 Hgb 10.0 g/dL (12.0-16.0) L 06/27/17 06:39 Hct 31.3 % (36.0-48.0) L 06/27/17 06:39 MCV 80.3 fl (80.0-105.0) 06/27/17 06:39 MCH 25.6 pg (25.0-35.0) 06/27/17 06:39 MCHC 31.9 g/dl (31.0-37.0) 06/27/17 06:39 RDW 14.7 % (11.5-14.5) H 06/27/17 06:39 Plt Count 226 10^3/uL (120.0-450.0) 06/27/17 06:39 MPV 10.2 fl (7.0-11.0) 06/27/17 06:39 Gran % 43.7 % (50.0-68.0) L 06/27/17 06:39 Lymph % (Auto) 43.8 % (22.0-35.0) H 06/27/17 06:39 Summit % (Auto) 9.7 % (1.0-6.0) H 06/27/17 06:39 Eos % (Auto) 2.6 % (1.5-5.0) 06/27/17 06:39 Baso % (Auto) 0.2 % (0.0-3.0) 06/27/17 06:39 Gran # 2.02 (1.4-6.5) 06/27/17 06:39 Lymph # 2.0 (1.2-3.4) 06/27/17 06:39 Summit # 0.5 (0.1-0.6) 06/27/17 06:39 Eos # 0.1 (0.0-0.7) 06/27/17 06:39 Baso # 0.01 K/mm3 (0.0-2.0) 06/27/17 06:39 Sodium 141 mmol/L (132-148) 06/27/17 06:39 Potassium 3.8 mmol/L (3.6-5.0) 06/27/17 06:39 Chloride 107 mmol/L (98-107) 06/27/17 06:39 Carbon Dioxide 29 mmol/L (21-33) 06/27/17 06:39 Anion Gap 9 (10-20) L 06/27/17 06:39 BUN 5 mg/dL (7-21) L 06/27/17 06:39 Creatinine 0.5 mg/dL (0.5-1.4) 06/27/17 06:39 Est GFR ( Amer) > 60 06/27/17 06:39 Est GFR (Non-Af Amer) > 60 06/27/17 06:39 Random Glucose 82 mg/dL (70-110) 06/27/17 06:39 Calcium 8.4 mg/dL (8.4-10.5) 06/27/17 06:39 Phosphorus 3.6 mg/dL (2.5-4.5) 06/27/17 06:39 Magnesium 1.8 mg/dL (1.7-2.2) 06/27/17 06:39 Total Bilirubin 0.3 mg/dL (0.2-1.3) 06/27/17 06:39 AST 30 U/L (14-36) 06/27/17 06:39 ALT 21 U/L (7-56) 06/27/17 06:39 Alkaline Phosphatase 52 U/L (38-126) 06/27/17 06:39 Total Protein 6.2 g/dL (5.8-8.3) 06/27/17 06:39 Albumin 3.4 g/dL (3.0-4.8) 06/27/17 06:39 Globulin 2.8 gm/dL 06/27/17 06:39 Albumin/Globulin Ratio 1.2 (1.1-1.8) 06/27/17 06:39 Procalcitonin 0.05 NG/ML (0.19-0.49) L 06/26/17 05:20 Beta HCG, Quant < 2.39 mIU/mL (0-6.15) 06/24/17 15:00 Urine Color Yellow (YELLOW) 06/26/17 17:20 Urine Appearance Clear (CLEAR) 06/26/17 17:20 Urine pH 6.5 (4.7-8.0) 06/26/17 17:20 Ur Specific Burke 1.010 (1.005-1.035) 06/26/17 17:20 Urine Protein Negative mg/dL (<30 mg/dL) 06/26/17 17:20 Urine Glucose (UA) Negative mg/dL (NEGATIVE) 06/26/17 17:20 Urine Ketones Negative mg/dL (NEGATIVE) 06/26/17 17:20 Urine Blood Negative (NEGATIVE) 06/26/17 17:20 Urine Nitrate Negative (NEGATIVE) 06/26/17 17:20 Urine Bilirubin Negative (NEGATIVE) 06/26/17 17:20 Urine Urobilinogen 0.2 E.U./dL (<1 E.U./dL) 06/26/17 17:20 Ur Leukocyte Esterase Negative De/uL (NEGATIVE) 06/26/17 17:20 Urine RBC 1 - 3 /hpf (0-2) 06/24/17 15:40 Urine WBC 0 - 2 /hpf (0-6) 06/24/17 15:40 Ur Epithelial Cells 0 - 2 /hpf (0-5) 06/24/17 15:40 Urine Bacteria Many (NEG) 06/24/17 15:40 Salicylates < 1 mg/dL (2.0-20.0) L 06/24/17 15:00 Urine Opiates Screen Negative (NEGATIVE) 06/24/17 15:40 Urine Methadone Screen Negative (NEGATIVE) 06/24/17 15:40 Acetaminophen < 10.0 ug/ml (10.0-20.0) L 06/24/17 15:00 Ur Barbiturates Screen Negative (NEGATIVE) 06/24/17 15:40 Ur Phencyclidine Scrn Negative (NEGATIVE) 06/24/17 15:40 Ur Amphetamines Screen Negative (NEGATIVE) 06/24/17 15:40 U Benzodiazepines Scrn Negative (NEGATIVE) 06/24/17 15:40 U Oth Cocaine Metabols Negative (NEGATIVE) 06/24/17 15:40 U Cannabinoids Screen Negative (NEGATIVE) 06/24/17 15:40 Alcohol, Quantitative < 10 mg/dL (0-10) 06/24/17 15:00 - Hospital Course Hospital Course: 32 y/o F with no PMH presented after intentionally ingesting 18 Motrin PM tablets for a headache. Upon further questioning, it was found that the patient had suicidal intent. Pt was admitted and placed on 1:1. Pt had serial EKGs monitoring QTc for anticholinergic toxicity. CT head was found to be negative. She also had atelectasis of the lower lobe of left lung, but did not have any cough, fever, or leukocytosis. Procalcitonin was also negative. Pt was seen by Psychiatry, who recommended the patient have inpatient psychiatric admission due to no remorse for prior suicidal attempt and that she was at high risk for a future suicide attempt. Pt was also placed on Macrobid for for UTI. She will continue antibiotics for 5 days. Pt was transferred to [facility] for further psychiatric treatment. Discharge Exam - Head Exam Head Exam: ATRAUMATIC, NORMAL INSPECTION, NORMOCEPHALIC - Respiratory Exam Respiratory Exam: NORMAL BREATHING PATTERN, UNREMARKABLE - Cardiovascular Exam Cardiovascular Exam: RRR, +S1, +S2 - GI/Abdominal Exam GI & Abdominal Exam: Normal Bowel Sounds, Soft, Unremarkable. absent: Tenderness - Extremities Exam Extremities exam: normal inspection - Neurological Exam Neurological exam: Alert, CN II-XII Intact, Oriented x3 - Psychiatric Exam Psychiatric exam: Flat Affect, Normal Mood Additional comments: No current suicidal ideation - Skin Skin Exam: Intact, Normal Color, Warm Discharge Plan - Discharge Medications Prescriptions: Nitrofurantoin Macrocrystals [Macrobid] 100 mg PO BID #16 cap - Follow Up Plan Condition: STABLE Disposition: Trans to Other Acute Care Hosp Instructions: Depression (DC), Suicide Prevention for Adults (DC) Additional Instructions: Patient being transported to [facility]. <Mary Ann De - Last Filed: 06/28/17 09:26> Provider - Provider Date of Admission: 06/24/17 20:09 Attending physician: Mary Ann De MD Hospital Course - Lab Results Lab Results: Most Recent Lab Values WBC 4.6 10^3/ul (4.5-11.0) 06/27/17 06:39 RBC 3.90 10^6/uL (3.5-6.1) 06/27/17 06:39 Hgb 10.0 g/dL (12.0-16.0) L 06/27/17 06:39 Hct 31.3 % (36.0-48.0) L 06/27/17 06:39 MCV 80.3 fl (80.0-105.0) 06/27/17 06:39 MCH 25.6 pg (25.0-35.0) 06/27/17 06:39 MCHC 31.9 g/dl (31.0-37.0) 06/27/17 06:39 RDW 14.7 % (11.5-14.5) H 06/27/17 06:39 Plt Count 226 10^3/uL (120.0-450.0) 06/27/17 06:39 MPV 10.2 fl (7.0-11.0) 06/27/17 06:39 Gran % 43.7 % (50.0-68.0) L 06/27/17 06:39 Lymph % (Auto) 43.8 % (22.0-35.0) H 06/27/17 06:39 Summit % (Auto) 9.7 % (1.0-6.0) H 06/27/17 06:39 Eos % (Auto) 2.6 % (1.5-5.0) 06/27/17 06:39 Baso % (Auto) 0.2 % (0.0-3.0) 06/27/17 06:39 Gran # 2.02 (1.4-6.5) 06/27/17 06:39 Lymph # 2.0 (1.2-3.4) 06/27/17 06:39 Summit # 0.5 (0.1-0.6) 06/27/17 06:39 Eos # 0.1 (0.0-0.7) 06/27/17 06:39 Baso # 0.01 K/mm3 (0.0-2.0) 06/27/17 06:39 Sodium 141 mmol/L (132-148) 06/27/17 06:39 Potassium 3.8 mmol/L (3.6-5.0) 06/27/17 06:39 Chloride 107 mmol/L (98-107) 06/27/17 06:39 Carbon Dioxide 29 mmol/L (21-33) 06/27/17 06:39 Anion Gap 9 (10-20) L 06/27/17 06:39 BUN 5 mg/dL (7-21) L 06/27/17 06:39 Creatinine 0.5 mg/dL (0.5-1.4) 06/27/17 06:39 Est GFR ( Amer) > 60 06/27/17 06:39 Est GFR (Non-Af Amer) > 60 06/27/17 06:39 Random Glucose 82 mg/dL (70-110) 06/27/17 06:39 Calcium 8.4 mg/dL (8.4-10.5) 06/27/17 06:39 Phosphorus 3.6 mg/dL (2.5-4.5) 06/27/17 06:39 Magnesium 1.8 mg/dL (1.7-2.2) 06/27/17 06:39 Total Bilirubin 0.3 mg/dL (0.2-1.3) 06/27/17 06:39 AST 30 U/L (14-36) 06/27/17 06:39 ALT 21 U/L (7-56) 06/27/17 06:39 Alkaline Phosphatase 52 U/L (38-126) 06/27/17 06:39 Total Protein 6.2 g/dL (5.8-8.3) 06/27/17 06:39 Albumin 3.4 g/dL (3.0-4.8) 06/27/17 06:39 Globulin 2.8 gm/dL 06/27/17 06:39 Albumin/Globulin Ratio 1.2 (1.1-1.8) 06/27/17 06:39 Procalcitonin 0.05 NG/ML (0.19-0.49) L 06/26/17 05:20 Beta HCG, Quant < 2.39 mIU/mL (0-6.15) 06/24/17 15:00 Urine Color Yellow (YELLOW) 06/26/17 17:20 Urine Appearance Clear (CLEAR) 06/26/17 17:20 Urine pH 6.5 (4.7-8.0) 06/26/17 17:20 Ur Specific Burke 1.010 (1.005-1.035) 06/26/17 17:20 Urine Protein Negative mg/dL (<30 mg/dL) 06/26/17 17:20 Urine Glucose (UA) Negative mg/dL (NEGATIVE) 06/26/17 17:20 Urine Ketones Negative mg/dL (NEGATIVE) 06/26/17 17:20 Urine Blood Negative (NEGATIVE) 06/26/17 17:20 Urine Nitrate Negative (NEGATIVE) 06/26/17 17:20 Urine Bilirubin Negative (NEGATIVE) 06/26/17 17:20 Urine Urobilinogen 0.2 E.U./dL (<1 E.U./dL) 06/26/17 17:20 Ur Leukocyte Esterase Negative De/uL (NEGATIVE) 06/26/17 17:20 Urine RBC 1 - 3 /hpf (0-2) 06/24/17 15:40 Urine WBC 0 - 2 /hpf (0-6) 06/24/17 15:40 Ur Epithelial Cells 0 - 2 /hpf (0-5) 06/24/17 15:40 Urine Bacteria Many (NEG) 06/24/17 15:40 Salicylates < 1 mg/dL (2.0-20.0) L 06/24/17 15:00 Urine Opiates Screen Negative (NEGATIVE) 06/24/17 15:40 Urine Methadone Screen Negative (NEGATIVE) 06/24/17 15:40 Acetaminophen < 10.0 ug/ml (10.0-20.0) L 06/24/17 15:00 Ur Barbiturates Screen Negative (NEGATIVE) 06/24/17 15:40 Ur Phencyclidine Scrn Negative (NEGATIVE) 06/24/17 15:40 Ur Amphetamines Screen Negative (NEGATIVE) 06/24/17 15:40 U Benzodiazepines Scrn Negative (NEGATIVE) 06/24/17 15:40 U Oth Cocaine Metabols Negative (NEGATIVE) 06/24/17 15:40 U Cannabinoids Screen Negative (NEGATIVE) 06/24/17 15:40 Alcohol, Quantitative < 10 mg/dL (0-10) 06/24/17 15:00 Attending/Attestation - Attestation I have personally seen and examined this patient.: Yes I have fully participated in the care of the patient.: Yes I have reviewed all pertinent clinical information, including history, physical exam and plan: Yes Notes (Text): 06/27/17 32 year old female who is currently admitted after overdosing on Motrin PM. She is on 1:1 observation. Psychiatry evaluation was appreciated who offered inpatient psychiatric treatment for depression and suicide attempt. However patient has refused and [facility] screeners were called. Initially she had mild QTc prolongation which has now normalized. She was started on macrobid for E coli UTI. Patient is transferred to [facility]. Mary Ann De MD Hospitalist.
== END 2017-06-27 12:33 | disposition short-term general hospital (02) | DRG 918 ==
LOC: ED 14:58 → ERH 20:09 → 2RNO 23:00 → 5RNO 06-26 19:41
PROVIDERS: ADMIT Internal Medicine; ATTEND Internal Medicine
DX: T39.312A Poisoning by propionic acid derivatives, intentional self-harm, initial encounter (principal); N39.0 Urinary tract infection, site not specified; J98.11 Atelectasis; I45.81 Long QT syndrome; B96.20 Unspecified Escherichia coli [E. coli] as the cause of diseases classified elsewhere